=== PATIENT | female | born 1950 | race Two or more races ===

== ENCOUNTER 2018-08-20 09:10 | Day surgery (SDC) | payer MEDICARE ==
[~2018-08-20] VITALS: Ht 154.9 cm; Wt 65.8 kg
[~2018-08-20 09:10] MED LIST: AMLO10TA6 PO; ASPI-630 PO; BUPIVAC MPF-EPI 0.5%-1:200000 30 ML VIAL. ONE; CALC667T PO; CARV25TA2 PO; FOLI0.8T3 PO; HEPARIN SODIUM 5,000 UNIT in IV NORMAL SALINE 500ML BAG 500 ML IRR ONE; HYDROmorphone 2 MG/ML VIAL IV PRN; IV RINGERS,LACTATED 1000ML 1,000 ML IV SCH; LIDOCAINE 1% PF 2 ML VIAL. ID PRN; LIDOCAINE 2% PF Vial for OR 5 ML VIAL. ONE; LISI-130 PO; MORPHINE SULFATE 2 MG/ML VIAL. IV PRN; ONDANSETRON PF 4 MG/2 ML VIAL. IV PRN; PROCHLORPERAZINE 10 MG/2 ML VIAL. IV PRN; PROPOFOL 20 ML IV ONE; ROCURONIUM 50 MG/5 ML VIAL. ONE; fentaNYL PF VIAL 100 MCG/2 ML VIAL IV PRN; fentaNYL PF VIAL 100 MCG/2 ML VIAL ONE
[2018-08-20 09:55] LABS: BASO % 1 % (0-3); EOS # 0.1 x10^3/uL (0.0-0.7); EOS % 2 % (0-3); HEMATOCRIT 34.2 % (36.0-47.0); HEMOGLOBIN 11.7 g/dL (12.0-15.5); LYMPH # 1.1 x10^3/uL (1.0-4.8); LYMPH % 20 % (24-48); MEAN CORPUSCULAR HEMOGLOBIN 31 pg (25-35); MEAN CORPUSCULAR HGB CONC 34 g/dL (31-37); MEAN CORPUSCULAR VOLUME 89 fL (79-100); MONO # 0.4 x10^3/uL (0.0-1.1); MONO % 7 % (0-9); NEUT # 3.9 x10^3uL (1.8-7.7); NEUT % 70 % (31-73); PLATELET COUNT 216 x10^3/uL (140-400); RED BLOOD COUNT 3.83 x10^6/uL (3.50-5.40); RED CELL DISTRIBUTION WIDTH 15.8 % (11.5-14.5); WHITE BLOOD COUNT 5.7 x10^3/uL (4.0-11.0)
[2018-08-20 10:15] LABS: CALCIUM 8.9 mg/dL (8.5-10.1); CREATININE 4.4 mg/dL (0.6-1.0); GFR 9.9; POTASSIUM 4.8 mmol/L (3.5-5.1)
[2018-08-20] MEDS ORDERED: IV NORMAL SALINE 1000ML BAG 1,000 ML IV SCH (10:15)
[2018-08-20] MEDS ORDERED: DEXAMETHASONE SOD PHOS 20 MG/5 ML VIAL. ONE (10:32)
[2018-08-20] MEDS ORDERED: DESFLURANE 31 TO 60 MINUTES IH ONE (10:32)
[2018-08-20] MEDS ORDERED: NEOSTIGMINE METHYLSULFATE 5 MG/5 ML SYRINGE. ONE (10:47)
[2018-08-20] MEDS ORDERED: ONDANSETRON PF 4 MG/2 ML VIAL. ONE (10:47)
[2018-08-20] MEDS ORDERED: GLYCOPYRROLATE 1 MG/5 ML VIAL. ONE (10:47)
[2018-08-20] MEDS ORDERED: NEOMY/BACITR/POLYMYXIN OINT PACKET. TP ONE (11:05)
--- NOTE | 2018-08-20 11:16 | PDOC ---
BRIEF OPERATIVE NOTE Date: Aug 20, 2018 Pre-Op Diagnosis ESRD Post-Op Diagnosis same Procedure Performed l/s placement of PD catheter Surgeon Marta Anesthesia Type: General Blood Loss 5cc IV Fluid 700cc Specimens Obtained none Findings no adhesions Complications none Operative Note Wk # [id number] NYA HERNANDEZ MD Aug 20, 2018 11:16
--- NOTE | 2018-08-20 11:21 | DISCH ---
DISCHARGE INSTRUCTIONS Condition on Discharge Condition on Discharge: Stable Activity After Discharge Activity Instructions for Disc: Activity as tolerated, Avoid exertion Lifting Instructions after Dis: No heavy lifting Driving Instructions after Dis: Do not drive today Diet after Discharge Diet after Discharge: Renal Dialysis Wound Incision Care Wound/Incision Care: Keep wound/cast CDI Other wound/incision instructi: leave dressing on Follow-Up Follow up with: Eliseo two weeks NYA HERNANDEZ MD Aug 20, 2018 11:21
[2018-08-20] MEDS ORDERED: HYDR-3164 PO (11:28)
[2018-08-20] MEDS ORDERED: SENN1TAB71 PO (11:31)
[2018-08-20] MEDS ORDERED: HYDROcodone/APAP 5/325MG 1 TAB TABLET PO ONE (11:45)
--- NOTE | 2018-08-20 12:06 | OP ---
DATE OF SURGERY: 08/20/2018 PREOPERATIVE DIAGNOSIS: End-stage renal disease. POSTOPERATIVE DIAGNOSIS: End-stage renal disease. PROCEDURE: Laparoscopic placement of peritoneal dialysis catheter. SURGEON: Nya Hernandez M.D. ANESTHESIA: General endotracheal. ESTIMATED BLOOD LOSS: 5 mL. INTRAVENOUS FLUIDS: 700 mL. INDICATIONS: The patient is a 68-year-old lady with failing kidneys, on hemodialysis, brought for placement of a PD catheter. DESCRIPTION OF PROCEDURE: The patient was brought to the operating suite, given a general endotracheal anesthetic and the abdomen prepped and draped in the usual sterile fashion. An epigastric incision was infiltrated with local anesthetic, incised and a 5-mm Visiport used to safely gain access into the abdominal cavity, taking care to avoid injury to abdominal contents. Pneumoperitoneum established with an upper limit of pressure at 12 cm water. Camera inserted and inspection carried out, with results as noted above. Under direct vision, the entry site for the catheter was infiltrated with local anesthetic, incised and the needle passed into the abdominal cavity. Needle removed. Dilator was passed. The catheter threaded through the sheath and the Dacron cuff was seated just above the peritoneum. Sheath removed. Catheter tunneled from insertion site to access site. Pneumoperitoneum released and port removed. The catheter was flushed with 500 mL normal saline, which are readily accepted and drained a similar amount. Incisions closed with 3-0 Vicryl in the subcutaneous tissue and subcuticular 4-0 Monocryl with Steri-Strips for the skin. Sterile dressings applied. The catheter was "packed" with 60 mL of heparinized saline. The patient awakened from her anesthetic and taken to the recovery room in satisfactory condition. NYA HERNANDEZ MD DR: [email or web address] JOB#: [id number] / [id number]
[2018-08-20 12:09] VITALS: BP 148/54
== END 2018-08-20 12:45 | disposition home or self-care (01) ==
LOC: SURG 09:10
PROVIDERS: ATTEND Surgery
DX: I12.0 Hypertensive chronic kidney disease with stage 5 chronic kidney disease or end stage renal disease (principal); E11.22 Type 2 diabetes mellitus with diabetic chronic kidney disease; N18.6 End stage renal disease; Z91.011 Allergy to milk products; Z99.2 Dependence on renal dialysis; Z79.82 Long term (current) use of aspirin; Z79.899 Other long term (current) drug therapy; Z98.890 Other specified postprocedural states; Z90.721 Acquired absence of ovaries, unilateral; Z83.3 Family history of diabetes mellitus; Z80.0 Family history of malignant neoplasm of digestive organs; Z84.1 Family history of disorders of kidney and ureter; Z72.89 Other problems related to lifestyle; Z79.84 Long term (current) use of oral hypoglycemic drugs
CPT/HCPCS: 36415; 49324; 80048; 85025; A7015; J0690; J1100; J1644; J2001; J2405; J2704; J2710; J3010; J3490; J7030; J7040

== ENCOUNTER → 2022-02-04 | Outpatient (CLI) | payer MEDICARE ==
[~2022-02-04] VITALS: Ht 156.2 cm; Wt 68.2 kg
[~2022-02-04] MED LIST changes: +AMLO-187 PO; -AMLO10TA6 PO; +ATOR80TA72 PO; +B CO1CAP11 PO; -BUPIVAC MPF-EPI 0.5%-1:200000 30 ML VIAL. ONE; -CALC667T PO; +CALC667T4 PO; +CONTRAST GIVEN. MC PRN; -HEPARIN SODIUM 5,000 UNIT in IV NORMAL SALINE 500ML BAG 500 ML IRR ONE; +HYDR-3164 PO; -HYDROmorphone 2 MG/ML VIAL IV PRN; +IOHEXOL 240 MG/ML 50ML VIAL. ONE; +IOHEXOL 240 MG/ML 50ML VIAL. PO ONE; -IV RINGERS,LACTATED 1000ML 1,000 ML IV SCH; -LIDOCAINE 1% PF 2 ML VIAL. ID PRN; -LIDOCAINE 2% PF Vial for OR 5 ML VIAL. ONE; +METO5TAB4 PO; -MORPHINE SULFATE 2 MG/ML VIAL. IV PRN; +ONDA-84 PO; -ONDANSETRON PF 4 MG/2 ML VIAL. IV PRN; +POTA-121 PO; -PROCHLORPERAZINE 10 MG/2 ML VIAL. IV PRN; -PROPOFOL 20 ML IV ONE; -ROCURONIUM 50 MG/5 ML VIAL. ONE; +SENN1TAB71 PO; -fentaNYL PF VIAL 100 MCG/2 ML VIAL IV PRN; -fentaNYL PF VIAL 100 MCG/2 ML VIAL ONE
[2022-02-04 11:01] VITALS: BP 167/62
--- NOTE | 2022-02-04 12:00 | NUR ---
Pt here for a PD catheter check. Pt to IR, procedure completed, pt tolerated without difficulty. Pt DC'd home with sister per wc. SHI RN
[2022-02-04 12:01] VITALS: BP 175/87
--- NOTE | 2022-02-04 12:52 | RAD ---
Procedure: Peritoneal dialysis catheter investigation 02/04/2022 Clinical Indication: Patient's newly placed peritoneal dialysis catheter is not returning fluid Anesthesia: Local anesthesia only. Continuous cardiopulmonary monitoring was performed by independent qualified nursing personnel. Please refer to the medical record for exact doses of medications utilized to achieve moderate sedati on. Contrast: 30 cc Isovue-300 Fluoroscopy time: 2.8 minutes Cumulative DAP (exposure) 10 Gycm2 Complications: None Consent: The procedure was explained in its entirety to the patient or the patients designated repre sentative by a member of the treatment team, including a discussion of the risks, benefits and common ly accepted alternatives to the procedure, as well as the expected consequences of no therapy whatsoe clara. Discussion of the risks included, but was not limited to, those that are most frequent and those that are rare but possibly severe or life-threatening, as well as the possibility of unforeseen comp lications. All questions were answered and informed consent was obtained. Sterility: All elements of maximal sterile barrier technique including the use of a cap, mask, steril e gown, sterile gloves, large sterile sheet, appropriate hand hygiene, and 2% chlorhexidine for cutan eous antisepsis (or acceptable alternative antiseptic per current guidelines) were followed for this procedure. Patient was placed in the supine position. The peritoneal dialysis catheter in right lower quadrant w ere prepped and draped in the appropriate sterile fashion. A timeout was performed. Collections Officer images dem onstrate the dialysis catheter coursing into the pelvis and then looping superiorly overlying the rig ht hemisacrum. Contrast was slowly injected into the catheter under fluoroscopy. This demonstrated fi lling of a-containing structure at the tip of the catheter. After this area becomes full contrast spi lls into the pelvis lower abdomen. Attempts to reposition the catheter was made by inserting multiple different wires of varying stiffness however the catheter would not straighten in the position. Cath eter was flushed and rebandage. Impression: 1. Right lower quadrant peritoneal dialysis catheter with possible fibrin sheath around the tip which overlies the right sacrum. 2. Unsuccessful attempted repositioning and disruption of the pocket. Electronically signed by: Donald Cedillo MD (02/04/2022 12:50 PM) [id number]
== END | disposition home or self-care (01) ==
LOC: INTRAD 10:20
PROVIDERS: ATTEND Internal Medicine Nephrology
DX: T86.290 Cardiac allograft vasculopathy (principal); I12.0 Hypertensive chronic kidney disease with stage 5 chronic kidney disease or end stage renal disease; N18.6 End stage renal disease; E66.9 Obesity, unspecified; E11.22 Type 2 diabetes mellitus with diabetic chronic kidney disease; Z99.2 Dependence on renal dialysis; Z79.82 Long term (current) use of aspirin; Z79.899 Other long term (current) drug therapy; Z98.890 Other specified postprocedural states; Z88.8 Allergy status to other drugs, medicaments and biological substances
CPT/HCPCS: 49400; 74190; C1769; Q9966